=== PATIENT | female | born 1970 | race Caucasian/White ===

== ENCOUNTER → 2017-12-12 | Outpatient (CLI) | payer OTHER ==
[2016-05-04 09:51] VITALS: BP 138/88
[~2017-12-12] MED LIST: LOW-OGESTREL 281 TAB PO; PAXIL10 M1 PO
== END ==
LOC: MAMMO 09:12
DX: Z12.31 Encounter for screening mammogram for malignant neoplasm of breast (principal)

== ENCOUNTER → 2018-12-25 | Day surgery (SDC) | payer OTHER ==
[2016-05-04 09:51] VITALS: BP 138/88
== END ==
LOC: MSO 09:31
DX: Z12.11 Encounter for screening for malignant neoplasm of colon (principal); Z80.0 Family history of malignant neoplasm of digestive organs; F32.9 Major depressive disorder, single episode, unspecified
CPT/HCPCS: 00812; J2704; J7120

== ENCOUNTER → 2023-12-01 | Outpatient (CLI) | payer OTHER | LOC: MAMMO 08:28 | DX: Z12.31 Encounter for screening mammogram for malignant neoplasm of breast (principal) ==